=== PATIENT | female | born 1970 | race Hispanic/Latino ===

== ENCOUNTER 2020-08-24 19:36 | Emergency (ER) | payer SELFPAY ==
[2020-08-24 19:57] VITALS: BP 142/87
[2020-08-24] MEDS ORDERED: diphenhydrAMINE 50 MG/ML VIAL IV ONE (20:05)
[2020-08-24] MEDS ORDERED: methylPREDNISolone Sod Succinate 125 MG/2 ML INJ IV ONE (20:05)
[2020-08-24] MEDS ORDERED: FAMOTIDINE 20 MG/2 ML INJ IV ONE (20:05)
--- NOTE | 2020-08-24 20:26 | Emergency Department Report ---
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 States towel and facial swelling and erythema and itching. There is no dizziness, lightheadedness, or nausea vomiting there is no shortness of breath, stridor, chest pain or nausea vomiting. Symptoms include itching and tongue swelling. Patient remains alert oriented x3 she is ambulatory with no acute distress. There are no other exacerbating or relieving factors. - Related Data Previous Rx's Medication Instructions Recorded Last Taken Type EPINEPHrine [Epipen 2-Trav] 0.3 mg IM PRN PRN #1 each 08/24/20 Unknown Rx Famotidine [Pepcid] 20 mg PO BID 7 Days #14 tablet 08/24/20 Unknown Rx diphenhydrAMINE [Benadryl CAP] 25 mg PO Q8HR PRN 7 Days #21 08/24/20 Unknown Rx capsule predniSONE [Deltasone] 40 mg PO QDAY 5 Days #10 tab 08/24/20 Unknown Rx Allergies Allergy/AdvReac Type Severity Reaction Status Date / Time blackberry Allergy Anaphylaxis Verified 08/24/20 19:52 lidia Allergy Anaphylaxis Verified 08/24/20 19:52 milk Allergy Anaphylaxis Verified 08/24/20 19:52 poppyseed oil Allergy Anaphylaxis Verified 08/24/20 19:52 ED Review of Systems ROS: Stated complaint: ALLERGIC REACTION Other details as noted in HPI Constitutional: denies: chills, fever Eyes: denies: eye pain, eye discharge, vision change ENT: congestion. denies: ear pain, throat pain Respiratory: denies: cough, shortness of breath, wheezing Cardiovascular: denies: chest pain, palpitations Endocrine: no symptoms reported Gastrointestinal: denies: abdominal pain, nausea, diarrhea Genitourinary: denies: urgency, dysuria, discharge Musculoskeletal: denies: back pain, joint swelling, arthralgia Skin: denies: rash, lesions Neurological: denies: headache, weakness, numbness, paresthesias, confusion Psychiatric: anxiety. denies: depression Hematological/Lymphatic: denies: easy bleeding, easy bruising ED Past Medical Hx - Past Medical History Previous Medical History?: No - Surgical History Hx Cholecystectomy: Yes - Medications Home Medications: Home Medications Medication Instructions Recorded Confirmed Last Taken Type EPINEPHrine [Epipen 2-Trav] 0.3 mg IM PRN PRN #1 each 08/24/20 Unknown Rx Famotidine [Pepcid] 20 mg PO BID 7 Days #14 tablet 08/24/20 Unknown Rx diphenhydrAMINE [Benadryl CAP] 25 mg PO Q8HR PRN 7 Days #21 08/24/20 Unknown Rx capsule predniSONE [Deltasone] 40 mg PO QDAY 5 Days #10 tab 08/24/20 Unknown Rx ED Physical Exam - General Limitations: No Limitations General appearance: alert, in no apparent distress - Head Head exam: Present: atraumatic, normocephalic - Eye Eye exam: Present: PERRL, EOMI Pupils: Present: normal accommodation - ENT ENT exam: Present: mucous membranes moist, TM's normal bilaterally, normal external ear exam - Expanded ENT Exam Expanded Ear exam: Present: normal external inspection Throat exam: Positive: other (mild tongue swelling uvula midline no stridor , no exudate, no lesions mild lip swelling , no open lesions, no drainage). Negative: tonsillar erythema, tonsillomegaly, tonsillar exudate, R peritonsillar mass, L peritonsillar mass - Neck Neck exam: Present: normal inspection, full ROM. Absent: tenderness, lymphadenopathy, thyromegaly - Respiratory Respiratory exam: Present: normal lung sounds bilaterally. Absent: respiratory distress, wheezes, rales, rhonchi, stridor, chest wall tenderness - Cardiovascular Cardiovascular Exam: Present: regular rate, normal rhythm, normal heart sounds. Absent: systolic murmur, diastolic murmur, rubs, gallop - GI/Abdominal GI/Abdominal exam: Present: soft, normal bowel sounds. Absent: distended, tenderness, bruit, hernia - Rectal Rectal exam: Present: deferred - Extremities Exam Extremities exam: Present: normal inspection, full ROM, normal capillary refill. Absent: tenderness - Back Exam Back exam: Present: normal inspection, full ROM. Absent: tenderness - Neurological Exam Neurological exam: Present: alert, oriented X3, CN II-XII intact, normal gait, reflexes normal. Absent: motor sensory deficit - Expanded Neurological Exam Expanded Patient oriented to: Present: person, place, time Speech: Present: fluid speech Motor strength exam: RUE: 5, LUE: 5, RLE: 5, LLE: 5 Best Eye Response (Thompson): (4) open spontaneously Best Motor Response (Thompson): (6) obeys commands Best Verbal Response (Yulisa): (5) oriented Thompson Total: 15 - Psychiatric Psychiatric exam: Present: normal affect - Skin Skin exam: Present: warm, dry, intact, normal color. Absent: rash ED Course Vital Signs 08/24/20 19:46 Temperature 98.0 F Pulse Rate 84 Respiratory 16 Rate Blood Pressure 142/87 O2 Sat by Pulse 100 Oximetry ED Medical Decision Making - Medical Decision Making Symptoms improved with medication given in ED there is no stridor no wheezing no shortness of breath. Swelling of tongue is resolved there is no angioedema noted at this time. Erythema facial is resolving. Patient given allergic reaction precautions including use of EpiPen. Patient will return to ED should symptoms worsen. Patient will be DC'd to home with prescriptions for steroids, Pepcid and Benadryl. Patient will follow-up with primary care doctor in 2 to 3 days. Patient verbalizes agreement and understanding with discharge plan. Patient DC'd in stable condition at this time Critical care attestation.: If time is entered above; I have spent that time in minutes in the direct care of this critically ill patient, excluding procedure time. ED Disposition Clinical Impression: Food allergy Disposition: DC-01 TO HOME OR SELFCARE Is pt being admited?: No Does the pt Need Aspirin: No Condition: Stable Instructions: Food Choices for Milk Allergy, Adult Prescriptions: diphenhydrAMINE [Benadryl CAP] 25 mg PO Q8HR PRN 7 Days #21 capsule PRN Reason: Allergy Symptoms predniSONE [Deltasone] 40 mg PO QDAY 5 Days #10 tab EPINEPHrine [Epipen 2-Trav] 0.3 mg IM PRN PRN #1 each PRN Reason: severe allergies Famotidine [Pepcid] 20 mg PO BID 7 Days #14 tablet Referrals: PAULINA MARQUIS MD [Staff Physician] - 3-5 Days Forms: Work/School Release Form(ED) Time of Disposition: 21:38
== END 2020-08-24 21:40 | disposition home or self-care (01) ==
LOC: ED 19:36
DX: T78.1XXA Other adverse food reactions, not elsewhere classified, initial encounter (principal); Z90.410 Acquired total absence of pancreas; Z79.899 Other long term (current) drug therapy; X58.XXXA Exposure to other specified factors, initial encounter
CPT/HCPCS: 96374; 96375; 99282; J1200; J2930

== ENCOUNTER 2020-08-25 19:34 | Emergency (ER) | payer SELFPAY ==
--- NOTE | 2020-08-25 20:05 | Event Note ---
ED Screening Note Date of service: 08/25/20 Time: 20:04 ED Screening Note: Patient returns to the ED today with complaints of worsening tongue swelling and facial rash Patient seen here yesterday for allergic reaction to milk No trismus or dyspnea noted on exam Patient does appear stable at this time This initial assessment/diagnostic orders/clinical plan/treatment(s) is/are subject to change based on patients health status, clinical progression and re- assessment by fellow clinical providers in the ED. Further treatment and workup at subsequent clinical providers discretion. Patient/guardian urged not to elope from the ED as their condition may be serious if not clinically assessed and managed. Initial orders include: Further eval
[2020-08-25 21:35] VITALS: BP 160/88
[2020-08-25] MEDS ORDERED: dexAMETHasone 20 MG/5 ML VIAL IV ONE (22:37)
[2020-08-25] MEDS ORDERED: diphenhydrAMINE 50 MG/ML VIAL IV ONE (22:37)
[2020-08-25] MEDS ORDERED: FAMOTIDINE 20 MG/2 ML INJ IV ONE (22:37)
--- NOTE | 2020-08-25 22:41 | Emergency Department Report ---
ED General Adult HPI - General Chief complaint: Allergic Reaction Stated complaint: ALLERGIC REACTION/FACIAL RASH Time Seen by Provider: 08/25/20 20:03 Source: patient Mode of arrival: Ambulatory Limitations: No Limitations - History of Present Illness Initial comments: The patient was evaluated in the emergency department for symptoms described in the history of present illness. He/she was evaluated in the context of the global COVID-19 pandemic, which necessitated consideration that the patient might be at risk for infection with the virus that causes COVID-19. Institutional protocols and algorithms that pertain to the evaluation of patients at risk for COVID-19 are in a state of rapid change based on information released by regulatory bodies including the CDC and federal and state organizations. These policies and algorithms were followed during the patient's care in the emergency department. Please note that these policies, procedures and recommendations changed on a rapid basis. 50-year-old female who was seen here yesterday for allergic reaction placed on medication but was unable to take secondary to swelling of her tongue and throat. Patient states she has difficulty swallowing the medication that she was prescribed. Patient states that the swelling has increased to have difficulty swallowing. Patient denies any trouble breathing no shortness of breath no chest pain. She did state that the rash had come back but only on her chest. Onset/Timin -: days(s) Location: face Severity scale (0 -10): 5 Associated Symptoms: fever/chills (No fever), nausea/vomiting (No vomiting). denies: confusion, chest pain, cough, loss of appetite, shortness of breath, weakness Treatments Prior to Arrival: none - Related Data Previous Rx's Medication Instructions Recorded Last Taken Type EPINEPHrine [Epipen 2-Trav] 0.3 mg IM PRN PRN #1 each 08/24/20 Unknown Rx Famotidine [Pepcid] 20 mg PO BID 7 Days #14 tablet 08/24/20 Unknown Rx diphenhydrAMINE [Benadryl CAP] 25 mg PO Q8HR PRN 7 Days #21 08/24/20 Unknown Rx capsule predniSONE [Deltasone] 40 mg PO QDAY 5 Days #10 tab 08/24/20 Unknown Rx Allergies Allergy/AdvReac Type Severity Reaction Status Date / Time blackberry Allergy Anaphylaxis Verified 08/24/20 19:52 lidia Allergy Anaphylaxis Verified 08/24/20 19:52 milk Allergy Anaphylaxis Verified 08/24/20 19:52 poppyseed oil Allergy Anaphylaxis Verified 08/24/20 19:52 ED Review of Systems ROS: Stated complaint: ALLERGIC REACTION/FACIAL RASH Other details as noted in HPI Comment: All other systems reviewed and negative ED Past Medical Hx - Surgical History Hx Cholecystectomy: Yes - Social History Smoking Status: Never Smoker - Medications Home Medications: Home Medications Medication Instructions Recorded Confirmed Last Taken Type EPINEPHrine [Epipen 2-Trav] 0.3 mg IM PRN PRN #1 each 08/24/20 Unknown Rx Famotidine [Pepcid] 20 mg PO BID 7 Days #14 tablet 08/24/20 Unknown Rx diphenhydrAMINE [Benadryl CAP] 25 mg PO Q8HR PRN 7 Days #21 08/24/20 Unknown Rx capsule predniSONE [Deltasone] 40 mg PO QDAY 5 Days #10 tab 08/24/20 Unknown Rx ED Physical Exam - General Limitations: No Limitations General appearance: alert, in no apparent distress - Head Head exam: Present: atraumatic, normocephalic - Eye Eye exam: Present: normal appearance - ENT ENT exam: Present: mucous membranes moist, other (Mild swelling to her tongue oropharynx patent) - Neck Neck exam: Present: full ROM. Absent: tenderness - Respiratory Respiratory exam: Absent: accessory muscle use - Cardiovascular Cardiovascular Exam: Present: regular rate, normal rhythm. Absent: systolic murmur, diastolic murmur, rubs, gallop - Back Exam Back exam: Present: normal inspection - Neurological Exam Neurological exam: Present: alert, oriented X3, normal gait - Psychiatric Psychiatric exam: Present: normal affect, normal mood - Skin Skin exam: Present: warm, dry, intact, normal color. Absent: rash ED Course Vital Signs 08/25/20 19:56 Temperature 98.6 F Pulse Rate 77 Respiratory 18 Rate Blood Pressure 160/88 O2 Sat by Pulse 100 Oximetry - Reevaluation(s) Reevaluation #1: 08/26/20 00:03 Patient reports she feels much better after having medication. Critical care attestation.: If time is entered above; I have spent that time in minutes in the direct care of this critically ill patient, excluding procedure time. ED Disposition Clinical Impression: Food allergy Disposition: DC-01 TO HOME OR SELFCARE Is pt being admited?: No Does the pt Need Aspirin: No Condition: Stable Additional Instructions: Please take medications that was given to you yesterday. Follow-up with an registered nursing professor and her primary care provider. Referrals: PRIMARY CARE, [Primary Care Provider] - 3-5 Days [facility] [Provider Group] - 3-5 Days Forms: Work/School Release Form(ED)
== END 2020-08-26 00:15 | disposition home or self-care (01) ==
LOC: ED 19:34
DX: T78.1XXA Other adverse food reactions, not elsewhere classified, initial encounter (principal); Z79.899 Other long term (current) drug therapy; Z91.011 Allergy to milk products; Z90.49 Acquired absence of other specified parts of digestive tract; X58.XXXA Exposure to other specified factors, initial encounter
CPT/HCPCS: 96374; 96375; 99282; J1100; J1200